=== PATIENT | female | born 1930 | race Caucasian/White ===

== ENCOUNTER 2017-01-24 11:14 | Day surgery (SDC) | payer MEDICARE ==
[2017-01-23 14:25] VITALS: BMI 22.1
[2017-01-24] MEDS ORDERED: Lidocaine 1% PF 5 ML VIAL ONE (12:54)
[2017-01-24] MEDS ORDERED: Propofol 200 MG/20 ML VIAL ONE (12:54)
--- NOTE | 2017-01-24 13:31 | OP ---
DATE OF PROCEDURE: 01/24/2017 SURGEON: Will Zurita M.D. PREOPERATIVE DIAGNOSIS: Achalasia. PROCEDURE: After informed consent was obtained, the patient was placed in the left lateral decubitu s position. Anesthesia was administered per the Anesthesia Department. Forward viewing endoscope w as inserted into the esophagus under direct visualization with ease and passed to the second portion of the duodenum with ease. Second portion of the duodenum and duodenal bulb were normal. The pylo jesus, antrum, body, fundus, and cardia were normal. Retroflexion in the stomach showed a small hiata l hernia. The botulism toxin was injected in 4 quadrant fashion, 1 mL per quadrant in the usual man ner. No immediate complications were noted. The esophagus was somewhat dilated. ASSESSMENT: 1. Achalasia. 2. Small hiatal hernia. 3. Otherwise, normal esophagogastroduodenoscopy. RECOMMENDATIONS: Follow up in office in 1 month.
--- OUTSIDE RECORDS SUMMARY | 2017-01-24 15:02 | XMS | Clinical Summary ---
:1930 Author Organization [facility] Address [address] [place] [address] Phone Care Team Providers Name Role Phone [place] [facility] Primary Care Provider tel Allergies No Known Allergies Current Medications Prescription Sig. Disp. Refills Start Date End Date Status carvedilol (COREG) 6.25 MG Take 6.25 mg by Active tablet mouth 2 (two) times a day with meals. furosemide (LASIX) 20 mg Take 20 mg by Active tablet mouth daily. potassium chloride Take 20 mEq by Active (KLOR-CON) 20 mEq packet mouth daily. LORAZepam (ATIVAN) 1 MG Take 1 mg by Active tablet mouth every 6 (six) hours as needed for anxiety. FENOFIBRATE Take 80 mg by Active NANOCRYSTALLIZED (TRICOR mouth daily. ORAL) pravastatin (PRAVACHOL) 20 Take 20 mg by Active MG tablet mouth daily. losartan (COZAAR) 50 MG Take 50 mg by Active tablet mouth daily. FISH Take by mouth 2 Active OIL/BORAGE/FLAX/OM3,6,9#1 (two) times a (OMEGA 3-6-9 COMPLEX ORAL) day. MV,CA,MIN/IRON/FA/GUARANA/C Take by mouth. Active AFF (ONE-A-DAY WOMEN'S ACTIVE ORAL) calcium carbonate (calcium Chew. Active carbonate) 400 mg calcium (1,000 mg) tablet,chewable levothyroxine (SYNTHROID, Take 75 mcg by Active LEVOXYL) 75 mcg tablet mouth every morning. digOXIN (LANOXIN) 125 mcg Take 125 mcg by Active tablet mouth daily. ascorbic acid, vitamin C, Take 1,000 mg by Active (vitamin C) 1000 MG tablet mouth daily. ascorbic acid, vitamin C, Take 500 mg by Active (VITAMIN C) 500 MG tablet mouth daily. biotin 10,000 mcg capsule Take by mouth. Active coenzyme Q10 (COQ-10) 100 Take 200 mg by Active mg capsule mouth 2 (two) times a day. metOLazone (ZAROXOLYN) 5 MG Take 5 mg by Active tablet mouth daily. 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 Family History Medical History Relation Name Comments Heart disease Father Heart disease Mother Relation Name Status Comments Father Mother Social History Tobacco Use Types Packs/Day Years Used Date Former Smoker Quit: 03/31/1984 Tobacco Cessation:Counseling Given: No Alcohol Use Drinks/Week oz/Week Comments No Sex Assigned at Date Recorded Not on file Last Filed Vital Signs Vital Sign Reading Time Taken Blood Pressure 108/55 08/01/2016 11:45 AM CDT Pulse 57 08/01/2016 11:45 AM CDT Temperature 35.6 C (96 F) 08/01/2016 11:45 AM CDT Respiratory Rate 18 08/01/2016 11:45 AM CDT Oxygen Saturation 98% 08/01/2016 11:45 AM CDT Inhaled Oxygen Concentration - - Weight 59.8 kg (131 lb 12.8 oz) 08/01/2016 11:45 AM CDT Height 165.1 cm (5' 5") 08/01/2016 11:45 AM CDT Body Mass Index 21.93 08/01/2016 11:45 AM CDT Plan of Treatment Health Maintenance Due Date Last Done Comments ZOSTER VACCINE 1989 PNEUMOCOCCAL POLYSACCHARIDE VACCINE AGE 65 AND OVER 1994 PNEUMOCOCCAL-13 1994 INFLUENZA VACCINE 10/29/2016 Results Not on filefrom Last 3 Months Insurance Payer Benefit Plan / Group Subscriber ID Type Phone Address MEDICARE MEDICARE PART A AND B [id number] Medicare [place], [place] AAR AARP SUPPLEMENT [id number] Commercial [phone] [place] [address], [place] [id number]
== END 2017-01-24 15:05 | disposition home or self-care (01) ==
LOC: SDC 11:14
PROVIDERS: ATTEND Internal Medicine Gastroenterology
PROC: 3E0G8GC Introduction of Other Therapeutic Substance into Upper GI, Via Natural or Artificial Opening Endoscopic (ICD-10-PCS; principal; 2017-01-24)
DX: K22.0 Achalasia of cardia (principal); K44.9 Diaphragmatic hernia without obstruction or gangrene; Z91.048 Other nonmedicinal substance allergy status; Z95.810 Presence of automatic (implantable) cardiac defibrillator; Z98.890 Other specified postprocedural states
CPT/HCPCS: 43236; J0585; J2001; J2704

== ENCOUNTER 2017-04-16 10:58 | Inpatient (IN) | payer MEDICARE ==
[2017-04-16] MEDS ORDERED: Ondansetron HCl/PF 4 MG/2 ML Vial ONE (11:27)
[2017-04-16 12:03] LABS: #Eosinphils 0.1 thou/uL (0.0-0.7); #Lymphocytes 0.8 thou/uL (1.20-3.40); #Monocytes 0.6 thou/uL (0.11-0.59); #Neutrophils 4.3 thou/uL (1.40-6.50); %Basophils 0.3 % (0.0-1.0); %Eosinophils 2.2 % (0.0-10.0); %Lymphocytes 13.4 % (21.0-51.0); %Monocytes 9.9 % (0.0-10.0); %Neutrophils 74.2 % (42.0-75.0); Hemoglobin 17.4 g/dL (12.0-16.0); Mean Corpuscular HGB CONC 31.2 g/dL (32.0-36.0); Mean Corpuscular Hemoglobin 32.8 pg (27.0-31.0); Mean Platelet Volume 7.8 fL (7.4-10.4); Platelet Count 184 thou/uL (130-400); RBC Distribution Width 15.9 % (11.5-14.5); Red Blood Cell (RBC) Count 5.32 mill/uL (4.20-5.40); White Blood Cell (WBC) Count 5.8 thou/uL (4.8-10.8)
[2017-04-16 12:17] LABS: ALT (SGPT) 24 U/L (8-55); AST (SGOT) 39 U/L (5-34); Albumin 3.7 g/dL (3.4-4.8); Alkaline Phosphatase 49 U/L (40-150); Anion Gap 17 mmol/L (10-20); BUN (Urea Nitrogen) 66 mg/dL (9.8-20.1); Bilirubin, Total 1.8 mg/dL (0.2-1.2); Calc. Creatinine Clearance 0 mL/min (70-130); Calcium 10.8 mg/dL (7.8-10.44); Carbon Dioxide 23 mmol/L (23-31); Chloride 96 mmol/L (98-107); Estimated GFR-MDRD 22; Glucose 115 mg/dL (83-110); Lipase 27 U/L (8-78); Potassium 5.9 mmol/L (3.5-5.1); Protein, Total 6.7 g/dL (6.0-8.3); Sodium 130 mmol/L (136-145)
[2017-04-16 12:21] LABS: CKMB 6.6 ng/mL (0-6.6)
--- NOTE | 2017-04-16 12:45 | RAD ---
2 VIEWS CHEST: Date: 04/16/17 COMPARISON: 02/01/17. HISTORY: Trauma with chest pain. FINDINGS: Two views of the chest show an enlarged but stable cardiomediastinal silhouette. The pacemaker is unc hanged in position. There is no evidence of consolidation or pleural effusion. There is obscurity of the left hemidiaphragm, which is likely secondary to the patient's enlarged heart. Degenerative perez es are seen in the spine. IMPRESSION: Cardiomegaly without evidence of acute cardiopulmonary disease. POS: [facility]
--- NOTE | 2017-04-16 13:12 | CT ---
CT ABDOMEN AND PELVIS WITHOUT CONTRAST: HISTORY: Abdominal pain after a fall. The patient is unable to have contrast given (poor renal function). COMPARISON: 01/30/2017 TECHNIQUE: Multiple contiguous axial images were obtained in a CT of the abdomen and pelvis without contrast. C oronal reformats were performed. FINDINGS: There is a small gallstone in the dependent aspect of the gallbladder. There appears to be stranding change surrounding the gallbladder, but this may be artifactual, as there is diffuse soft tissue crystal sarca. There are calcifications in the spleen from prior granulomatous disease. The liver, kidneys, adrenal glands, and pancreas are grossly unremarkable, but evaluation is limited without IV contrast . A small amount of free fluid is seen in the pelvis. The reproductive organs are small and atrophic. Scattered diverticula are seen in the colon. The small bowel is unremarkable. No abdominal or pelvic lymphadenopathy is seen. Atherosclerotic calcifications are seen in the aorta and its branch vessels. Degenerative changes are seen in the spine. There are small bilateral pleural effusions. A calcifie d granuloma is seen in the left lung base. IMPRESSION: 1. No evidence of acute intraabdominal/pelvic abnormality. Please note that this exam is limited se condary to a noncontrast exam being performed. 2. Cholelithiasis with possible stranding surrounding the gallbladder. Correlate with right upper q uadrant tenderness and liver function tests. 3. Diverticulosis. POS: [facility] L
[2017-04-16 13:45] LABS: Digoxin 0.82 ng/mL (0.8-2.0)
--- NOTE | 2017-04-16 14:10 | ULT ---
RIGHT UPPER QUADRANT ULTRASOUND: Comparison: CT abdomen/pelvis 04-16-17. History: Abnormality seen in the gallbladder on prior CT. Patient has chest and abdominal pain. Technique: Multiplanar grayscale and color doppler images were obtained in a right upper quadrant abd ominal ultrasound. FINDINGS: The liver is normal in echogenicity without focal lesions or intrahepatic ductal dilatation. The comm on bile duct is normal measuring 5 mm. The gallbladder is distended. There is significant gallbladder wall thickening and a small amount of pericholecystic fluid. There is one single echogenic focus in the gallbladder without shadowing which could represent a nonshadowing calcification. The visualized portions of the pancreas are unremarkab le. The right kidney is normal in echogenicity without hydronephrosis or calculus and measures 9.9 cm in length. IMPRESSION: The gallbladder demonstrates a thickened wall and pericholecystic fluid. This could be secondary to a cute cholecystitis. Correlate with LFTs and white count. POS: [facility]
[2017-04-16 15:38] LABS: CKMB 4.3 ng/mL (0-6.6); Troponin I 0.099 ng/mL (< 0.028)
[2017-04-16 15:54] LABS: ALT (SGPT) 23 U/L (8-55); AST (SGOT) 44 U/L (5-34); Albumin 2.9 g/dL (3.4-4.8); Alkaline Phosphatase 41 U/L (40-150); Anion Gap 22 mmol/L (10-20); BUN (Urea Nitrogen) 63 mg/dL (9.8-20.1); Bilirubin, Total 1.5 mg/dL (0.2-1.2); Calc. Creatinine Clearance 0 mL/min (70-130); Calcium 10.1 mg/dL (7.8-10.44); Carbon Dioxide 15 mmol/L (23-31); Chloride 100 mmol/L (98-107); Estimated GFR-MDRD 23; Globulin 3.3 g/dL (2.4-3.5); Glucose 87 mg/dL (83-110); Potassium 6.5 mmol/L (3.5-5.1); Protein, Total 6.2 g/dL (6.0-8.3); Sodium 130 mmol/L (136-145)
[2017-04-16 16:31] LABS: Anion Gap 18 mmol/L (10-20); BUN (Urea Nitrogen) 63 mg/dL (9.8-20.1); Calc. Creatinine Clearance 0 mL/min (70-130); Calcium 10.2 mg/dL (7.8-10.44); Carbon Dioxide 23 mmol/L (23-31); Chloride 98 mmol/L (98-107); Estimated GFR-MDRD 25; Glucose 85 mg/dL (83-110); Potassium 5.6 mmol/L (3.5-5.1); Sodium 133 mmol/L (136-145)
[2017-04-16] MEDS ORDERED: Piperacillin/Tazobactam 3.375 GM in Sodium Chloride 0.9% 100 ML IVPB SCH (16:45)
[2017-04-16] MEDS ORDERED: Acetaminophen 325 MG TAB PO PRN (19:04)
[2017-04-16] MEDS ORDERED: Sodium Chloride 0.9% 1,000 ML IV SCH (19:04)
[2017-04-16] MEDS ORDERED: Ondansetron HCl/PF 4 MG/2 ML Vial IVP PRN (19:04)
[2017-04-16] MEDS ORDERED: hydrALAZINE 20 MG/ML VIAL SLOW IVP PRN (19:04)
--- NOTE | 2017-04-16 19:14 | CON ---
DATE OF CONSULTATION: 04/16/2017 REQUESTING PHYSICIAN: Dr. Lamb. ATTENDING SURGEON: Dr. Gao. HISTORY OF PRESENT ILLNESS: The patient is an 87-year-old female who reportedly fell approximately 2 -3 days ago while in her bathroom, she slipped and struck the left side of her chest against the wall between her toilet and bidet. The patient's pain continued, left-sided chest pain and finally broug ht her to the emergency department where she underwent evaluation and examination and during that exa mination, she was noted to have on CT pericholecystic fluid with the appearance of possible acute cho lecystitis. This fluid was confirmed by right upper quadrant ultrasound. According to the patient's history, she denies any right upper quadrant pain. She does have occasional nausea and vomiting navi t she can relate to any specific foods, most notably fatty foods but we were asked to evaluate the pa tient due to this incidental finding. ALLERGIES: No known drug allergies. CURRENT MEDICATIONS: Carvedilol, CoQ10, digoxin, Lasix, levothyroxine, potassium chloride, pravastat in and TriCor. PAST MEDICAL HISTORY: Coronary artery disease with significant left-sided heart failure, the patient was noted to have an EF of 25%;hypertension; hypothyroidism; and COPD. PAST SURGICAL HISTORY: Implanted defibrillator, gastric bypass surgery. SOCIAL HISTORY: Patient is and lives with her . She denies drug, alcohol or tobacco use. REVIEW OF SYSTEMS: Ten point review of systems was negative, unless otherwise stated. PHYSICAL EXAMINATION: VITAL SIGNS: Blood pressure 102/49, heart rate 61, respirations 17, oxygen saturation 96% on 3 liter s via nasal cannula. HEENT: Unremarkable. GENERAL: The patient is alert and oriented x3. Lower Brule coma scale is 15. NECK: Trachea is midline. No JVD. LUNGS: Clear to auscultation with moderate inspiratory and expiratory effort, does have scant bilate ral wheezing. HEART: Regular rate and rhythm. ABDOMEN: Soft, flat, nontender with active bowel sounds. Pelvis is stable. The patient has no maryjo toneal signs. Negative Mims's sign. The patient did have some left-sided chest wall pain. EXTREMITIES: Show neurovascularly intact with 1+ edema in bilateral lower extremities. Capillary re fill is less than 3 seconds. Pulses are 2+. BACK: Nontender and atraumatic. LABORATORY DATA: White blood cell count 5.8, hemoglobin 17.4, hematocrit 55.5, platelets 184. Sodiu m 133, potassium 5.6, chloride of 98, CO2 of 23, BUN 63, creatinine 1.87, glucose 85, total bilirubin 1.5, AST 44, ALT 23, alkaline phosphatase 41. RADIOGRAPHIC FINDINGS: 1. AP chest shows cardiomegaly without evidence of acute pulmonary disease. CT of the abdomen and p linda shows no evidence of acute abdominal/pelvic abnormality which is limited by being a noncontrast ed study. 2. Cholelithiasis with possible stranding surrounding the gallbladder and diverticulosis. Right upp er quadrant ultrasound shows the gallbladder demonstrates a thickened wall and pericholecystic fluid. This could be secondary to acute cholecystitis. ASSESSMENT AND PLAN: 1. Status post fall approximately 3 days ago. 2. Left-sided chest wall contusion. 3. Hyponatremia. 4. Hyperkalemia. 5. Acute on chronic renal insufficiency. 6. Incidental finding of possible chronic cholecystitis. Plan will be to optimize medical management to correct electrolyte abnormalities. We will re-examine the patient in the morning. Due the patient's significant comorbidities to include EF of only 25%, maximizing conservative management/nonoperative management will be primary. If surgical intervention is thought to be needed, patient may benefit from a HIDA scan at that time. The evaluation, examina tion, radiographic and laboratory findings were done with Dr. Gao in the emergency department.
[2017-04-16] MEDS: Famotidine 20 MG TAB PO SCH (21:00)
[2017-04-16] MEDS ORDERED: (Biotin [Biotin] 10,000 MCG) PO SCH (21:00)
[2017-04-16] MEDS: Stress 600 With Zinc 1 TAB PO SCH (21:00)
[2017-04-16] MEDS: Fish Oil 1,000 MG CAP PO SCH (21:00)
[2017-04-16] MEDS: Ubidecarenone 50 MG CAP PO SCH (21:00)
[2017-04-16] MEDS: Fenofibrate 48 MG TAB PO SCH (21:01)
[2017-04-16] MEDS: Heparin 5,000 UNITS/ML VIAL SC SCH (21:01)
[2017-04-16] MEDS: Pravastatin Sodium 20 MG TAB PO SCH (21:01)
[2017-04-16] MEDS: Ondansetron ODT 4 MG TAB PO PRN (21:20)
--- NOTE | 2017-04-16 22:03 | HP ---
PRIMARY CARE PHYSICIAN: Dr. Villarreal. ONCOLOGIST: Dr. Sanders. CHIEF COMPLAINT: Fell in the bathroom and having soreness in her chest. HISTORY OF PRESENT ILLNESS: Ms. 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 She says that s he fell in the bathroom and hit the side of her chest and then shortly after that she began having so reness in her chest. She said it got progressively worse and then she called to make an appointment to see Dr. Villarreal, but the pain got worse and she came to the emergency room for evaluation. She says also she has been having an upset stomach and nausea, but she says she has this almost all the time. She says the nausea may be a little bit worse than usual. She says due to her achalasia, she can k eep liquids down and this has been consistent. She says there is no change in this symptoms. She sa ys that she has not had any solid food, which she is usually able to eat, but she attributes this to the fall and having more pain. Otherwise, there has been no fevers, no chills, no night sweats, no w eight loss, etc. REVIEW OF SYSTEMS: Constitutional: Again no fevers, chills, no night sweats, no weight loss. HEENT : No headaches, no dizziness, no visual changes, no sore throat, rhinorrhea, neck pain, no adenopath y. Pulmonary: No hemoptysis, no cough, no wheezing. Cardiovascular: She denies any chest pain, no shortness of breath, no PND, no orthopnea. Gastrointestinal: As stated in the history of present i llness. Genitourinary: No urinary frequency, hematuria, no hesitancy. Neurologic: No focal weakne ss, numbness, no seizures. Psychiatric: No symptoms of anxiety or depression. Skin And Integument: No skin changes. No rash. 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 PAST SURGICAL HISTORY: She has initially had a pacemaker then a defibrillator placed and then a gene rator change and she has had multiple Botox injections. ALLERGIES: LATEX. SOCIAL HISTORY: She is a nonsmoker, nondrinker. Denies any drug use. She is . FAMILY HISTORY: No history of any inheritable diseases. CURRENT MEDICATIONS: Include biotin, carvedilol 3.125 mg twice daily, vitamin D3 of 2000 units daily , digoxin 0.125 mg daily, TriCor 80 mg daily, Lasix 80 mg daily, lorazepam 1 mg at bedtime, Synthroid 75 mcg daily, losartan 50 mg one-half tablet daily, multivitamin once a day, and potassium chloride 10 mEq a day. PHYSICAL EXAMINATION: GENERAL: She is alert and oriented. She appears to be in no acute distress. The patient is a bit t hin for her height, but well-developed. VITAL SIGNS: Blood pressure is 113/61, heart rate 64, respiratory rate of 18. She is afebrile. HEENT: Pupils are equal, round, and reactive. Extraocular muscles are intact. Her sclerae anicteri c. Throat no erythema, no exudates. NECK: No adenopathy, no bruits. LUNGS: Clear to auscultation. No wheezing, no rales. CARDIOVASCULAR: She has a normal S1, S2. I did not appreciate any S3 or S4. She does have a grade 2/6 systolic murmur. ABDOMEN: Soft. She has got some diffuse tenderness primarily in the epigastric to left-mid quadrant . Bowel sounds are present. There is no rebound, no guarding. EXTREMITIES: She has got some nonpitting brawny like edema throughout. NEUROLOGICAL: Her exam is nonfocal. LABORATORY RESULTS: Sodium is 133, potassium 5.6, chloride is 98, CO2 is 23, BUN is 63, creatinine 1 .8, glucose is 85. White blood cell count is 5.8, hemoglobin 17, hematocrit is 55.8, platelet count is 184. Troponin was 0.12. CT scan and abdominal ultrasound both demonstrated stones in the gallbladder, cholelithiasis. There was also some stranding as well about the gallbladder, the pericolic region. Chest x-ray was essenti ally negative without any acute cardiopulmonary disease. ASSESSMENT AND PLAN: This is an 87-year-old female who suffered a fall at home and then began having pain in her chest afterwards. Apparently that pain was very severe and she sought attention in the ER. Now that she has been given some IV fluids in the emergency room as well as antibiotics and anti emetics, she is feeling much better and her daughter actually says she appears to be at her baseline. She has already been seen by Dr. Gao with General Surgery to evaluate for acute cholecystitis and it is of his opinion that this is unlikely and as such, surgical intervention is not warranted. The refore, with regard to the chest pain, this is likely due to a chest contusion. Chest x-ray did not demonstrate any obvious risk for fractures, this can be treated symptomatically. 1. Abdominal pain and nausea. This is likely the result of her chronic achalasia. Her symptoms are more related to liquids than solids and this is consistent with what she has experienced for many ye ars now. The decreased intake and solids was likely secondary to pain. 2. The patient appears to have a mild acute on chronic kidney injury likely from decreased oral inta ke. The hyperkalemia is likely the result of the acute renal failure as well. She has already been given a liter of fluids in the ER, but given her history of severe systolic heart failure. We will c autiously continue to hydrate her overnight, but at a very low rate. 3. Chronic systolic heart failure. This appears to be compensated and we will restart her usual merlyn e medications regarding this. Hopefully, if she is stable in the a.m., then likely she can be discha rged home.
--- NOTE | 2017-04-17 00:28 | PRG ---
DATE OF SERVICE: 04/16/2017 SUBJECTIVE: This is an 87-year-old female who was seen earlier today as a surgical consultation for question of acute cholecystitis. Upon my evaluation, the patient denies any right upper quadrant ankit n. She did, however, recently have some vomiting after receiving her evening medications, but patien t states nausea has since resolved. Otherwise, she vocalized no complaints. OBJECTIVE: VITAL SIGNS: Reviewed and stable. Patient is afebrile. GENERAL: Sitting on edge of bed, eating applesauce. RESPIRATORY: Breathing is nonlabored. ABDOMEN: Soft, nontender, nondistended. ASSESSMENT AND PLAN: As documented in consultation note. Follow patient's physical exam in the a.m. Continue care as ordered. Medical management per primary.
[2017-04-17 04:05] LABS: Bilirubin Small (Negative); Blood, Urine Negative (Negative); Clarity CLOUDY (Clear); Glucose, Urine (Dipstick) Negative (Negative); Leukocyte Moderate (Negative); Nitrite Negative (Negative); Protein, Urine (Dipstick) 100 mg/dL (Neg-Trace); Specific Gravity, Urine 1.023 (1.002-1.036); pH, Urine 5.5 (5.0-9.0)
[2017-04-17 04:07] LABS: Bacteria/HPF None Seen HPF (None Seen); Hyaline Casts/LPF 7-10 HYALINE CAST LPF (0-3 Hyaline); Pathc Cast-AUWi Flag 1.49 (0-2.49); Squamous Epithelial 0-3 HPF (0-3)
[2017-04-17 04:11] LABS: Yeast-AUWi Flag 107.5 (0-25.0)
[2017-04-17 04:17] LABS: Amphetamine Not Detected (NotDetected); Barbiturates Screen Not Detected (NotDetected); Benzodiazepine Screen Detected (NotDetected); Cocaine Metabolite Screen Not Detected (NotDetected); Medtox Control Line Valid? VALID (VALID); Medtox Reader # READER 4; Methadone Not Detected (NotDetected); Methamphetamine Not Detected (NotDetected); Opiate Screen Not Detected (NotDetected); Oxycodone Screen Not Detected (NotDetected); Phencyclidine (PCP) Not Detected (NotDetected); THC/Cannabinoid Screen Not Detected (NotDetected); Tricyclic Screen Not Detected (NotDetected)
[2017-04-17 04:29] LABS: Crystals/HPF 1+ AMORPH URATES HPF (Negative); RBC/HPF 0-3 HPF (0-3); Renal Epithelial None Seen HPF (0-3); Yeast-All Forms None Seen HPF (None Seen)
[2017-04-17] MEDS: Levothyroxine Sodium 75 MCG TAB PO SCH (05:06)
[2017-04-17] MEDS: cefTRIAXone\\ROCEPHIN 1 GM, Syringe 0.4 ML in Sterile Water 9.6 ML SLOW IVP SCH (05:29)
[2017-04-17 05:37] LABS: Anion Gap 15 mmol/L (10-20); BUN (Urea Nitrogen) 69 mg/dL (9.8-20.1); Calc. Creatinine Clearance 16 mL/min (70-130); Calcium 9.7 mg/dL (7.8-10.44); Carbon Dioxide 27 mmol/L (23-31); Chloride 97 mmol/L (98-107); Estimated GFR-MDRD 20; Glucose 81 mg/dL (83-110); Potassium 6.4 mmol/L (3.5-5.1); Sodium 133 mmol/L (136-145)
[2017-04-17 05:38] LABS: ALT (SGPT) 27 U/L (8-55); AST (SGOT) 49 U/L (5-34); Albumin 3.6 g/dL (3.4-4.8); Alkaline Phosphatase 76 U/L (40-150); Bilirubin, Direct 1.4 mg/dL (0.1-0.3); Bilirubin, Total 1.8 mg/dL (0.2-1.2); Protein, Total 6.2 g/dL (6.0-8.3)
[2017-04-17 06:33] LABS: Hemoglobin 15.4 g/dL (12.0-16.0); Mean Corpuscular HGB CONC 31.1 g/dL (32.0-36.0); Mean Corpuscular Hemoglobin 33.1 pg (27.0-31.0); Mean Platelet Volume 8.3 fL (7.4-10.4); Platelet Count 136 thou/uL (130-400); RBC Distribution Width 15.8 % (11.5-14.5); Red Blood Cell (RBC) Count 4.65 mill/uL (4.20-5.40); White Blood Cell (WBC) Count 4.6 thou/uL (4.8-10.8)
[2017-04-17 08:02] LABS: Band 7 % (5-11); Eosinophils 1 % (0-10); Lymphocytes 12 % (21-51); MDiff Complete? YES; Monocytes 2 % (0-10); Neutrophil 71 % (42-75); RBC Morphology Normal; Reactive Lymphocytes 7 % (0-10)
[2017-04-17] MEDS ORDERED: Potassium Chloride 20 MEQ TAB PO SCH (09:00)
[2017-04-17] MEDS ORDERED: Multivit, Therapeutic 1 TAB PO SCH (09:00)
[2017-04-17] MEDS ORDERED: Digoxin 0.125 MG TAB PO SCH (09:00)
[2017-04-17] MEDS ORDERED: Losartan 25 MG TAB PO SCH (09:00)
[2017-04-17] MEDS: Carvedilol 3.125 MG TAB PO SCH ×2 (09:38→17:18)
[2017-04-17] MEDS: Heparin 5,000 UNITS/ML VIAL SC SCH ×2 (09:39→22:31)
[2017-04-17] MEDS: traMADol HCl 50 MG TAB PO PRN (13:04)
[2017-04-17] MEDS ORDERED: Sodium Chloride 0.9% 1,000 ML IV SCH (15:08)
--- NOTE | 2017-04-17 15:12 | PDOC.PN ---
- Subjective Encounter Start Date: 04/17/17 Encounter Start Time: 15:10 Ms. Amaro was able to eat a little breakfastthis morning. Some eggs, however later this afternoon she began to feel sick again. She ate a fruit cup around 1pm and then was able to take the Kayexalate, and an Ultram, and then about an hour later became sick again. She also notes some abdominal pain in the lower abdomen as well. - Objective Resuscitation Status: Resuscitation Status FULL:Full Resuscitation MAR Reviewed: Yes Vital Signs & Weight: Vital Signs (12 hours) Temp Pulse Resp BP Pulse Ox 04/17/17 12:59 63 18 97/53 L 100 04/17/17 09:38 65 04/17/17 07:30 98.8 F 65 18 113/61 100 04/17/17 04:11 99.1 F 63 20 105/55 L 99 Weight Weight 134 lb 1.6 oz I&O: 04/16/17 04/17/17 04/18/17 06:59 06:59 06:59 Intake Total 381 600 Output Total 350 Balance 31 600 Result Diagrams: 04/17/17 04:12 04/17/17 04:12 Phys Exam - Physical Examination HEENT: PERRLA Respiratory: no wheezing, no rales, no rhonchi, clear to auscultation bilateral Cardiovascular: RRR, no significant murmur Gastrointestinal: soft + abdominal discomfort in the lower abdomen, soft, positive BS Musculoskeletal: no edema Dx/Plan (1) Hyperkalemia Code(s): E87.5 - HYPERKALEMIA Status: Acute (2) Acute renal failure Status: Acute (3) Chronic systolic heart failure Code(s): I50.22 - CHRONIC SYSTOLIC (CONGESTIVE) HEART FAILURE Status: Acute (4) Achalasia Code(s): K22.0 - ACHALASIA OF CARDIA Status: Chronic (5) Nausea & vomiting Code(s): R11.2 - NAUSEA WITH VOMITING, UNSPECIFIED Status: Resolved - Plan * Nausea and vomiting- it is very difficult to determine if her symptoms are due to Achalasia, or to Gallbladder disease. It is also noted that her LFT's and Bilirubin is a bit higher today. Will therefore obtain a HIDA scan. If positive, she could be considered for Cholecystostomy tube drainage of the Gallbladder, if she is too high risk for Cholecystectomy * Hyperkalemia- this is likely from acute renal failure- as well as potassium supplementation and ARB's. Will discontinue Losartan, and Potassium replacement , She has been given Kayexalate, and will repeat potassium level this afternoon * Achalasia- continue diet as recommended by Speech Therapy * Chronic Systolic heart failure- recent Echo had her EF at 10-15%- therefore hydration will need to be managed carefully.
[2017-04-17] MEDS ORDERED: Lorazepam 2 MG/ML VIAL SLOW IVP PRN (17:00)
[2017-04-17 17:35] LABS: Potassium 6.6 mmol/L (3.5-5.1)
[2017-04-17] MEDS ORDERED: Calcium Chloride 13.6 MEQ in Sodium Chloride 0.9% 100 ML IVPB SCH (18:00)
--- NOTE | 2017-04-17 18:58 | CON ---
DATE OF CONSULTATION: 04/17/2017 NEPHROLOGY CONSULTATION REASON FOR CONSULTATION: Hyperkalemia. HISTORY OF PRESENT ILLNESS: This is a very pleasant 87-year-old female who presented with a fall aft er having episodes of chest pain. Her potassium was more than 6 yesterday and increased to 6.6. She has congestive heart failure, so we were consulted. The patient at this time denies headache, numbn ess, tingling, or chest pain. PAST MEDICAL HISTORY: Significant for hypothyroidism, achalasia, congestive heart failure, EF 10%, h yperlipidemia, bradycardia, pacemaker defibrillator, bone marrow malignancy, multiple Botox injection s. REVIEW OF SYSTEMS: Fifteen point review of systems was performed and negative except positives noted . GENERAL: Weakness- HEAD: Headache- NECK: No swelling or lumps. NOSE: No epistaxis or discharge. EYES: No diplopia or pain. RESPIRATORY: Dyspnea- CARDIOVASCULAR: Chest pain- GASTROINTESTINAL: Nausea- /PROFESSOR OF MEDICINE: Hematuria- MUSCULOSKELETAL: No joint pain. NEUROPSYCHIATIC SYSTEMS: No suicidal ideation. No ideation. SKIN: Denies any rash or ulcer. CONSTITUTIONAL: No fever or chills. SOCIAL HISTORY: No alcohol or drug use. FAMILY HISTORY: Negative for ESRD. ALLERGIES: Reviewed. HOME MEDICATIONS: List reviewed. PHYSICAL EXAMINATION: GENERAL: Patient is awake, alert, in no acute distress. VITAL SIGNS: Afebrile, pulse 75, breathing at 16, blood pressure was 96/55. OBJECTIVE: See above. GENERAL APPEARANCE AND MENTAL STATUS: Fair. HEAD/NECK: Normocephalic. Atraumatic. EYES: EOMI. No deformity. EARS: Clear. No ulcers. NOSE: Intact. No lesions. MOUTH: Clear. No discharge. THROAT: Clear. No exudate. LUNGS: Clear. No crackles. CARDIAC: S1, S2. No rub. ABDOMEN: Benign. BS+. GENITALIA/RECTUM: Negron absent. BACK/EXTREMITIES: Edema 0+ Ulcer- NEUROLOGICAL: Alert and motor intact. SKIN: Rash- Bruise- LYMPHATICS: Edema- Ulcer- LABORATORY DATA: Potassium 6.6. Hemoglobin is 15.4. ASSESSMENT AND RECOMMENDATIONS: 1. Acute kidney injury with chronic kidney disease, most likely due to congestive heart failure. Ag ree with stopping ARB. 2. Hyperkalemia. Plan urgent dialysis. Consent was obtained. Risks versus benefits were discussed . Metabolic acidosis resolved. 3. Medication based on glomerular filtration rate. I would recommend changing the digoxin to every 2 days.
[2017-04-17 19:49] LABS: Potassium 6.2 mmol/L (3.5-5.1)
[2017-04-17 20:58] LABS: Hep B Core Total Ab Non-Reactive (NonReactive)
--- NOTE | 2017-04-17 21:00 | PRG ---
DATE OF SERVICE: 04/17/2017 The patient was seen in consultation yesterday for an incidental finding of what was most likely a ch ronic cholecystitis. The patient currently has no evidence of acute cholecystitis that will necessit ate surgical intervention. The patient overnight again tolerated her diet. She did have some nausea , but all of her pain was left-sided, consistent with where her fall was. The patient is still requi ring medical management for her electrolyte imbalances and renal insufficiency. The possibility of s urgical intervention for her gallbladder was discussed with the patient and with Dr. Rossi. At this time, we will await any acute changes, otherwise we will have the patient follow up as an outpatient . This case was discussed by Dr. Gao at rounds.
[2017-04-17 21:04] LABS: Hep B Surf Ag Non-Reactive S/CO (NonReactive)
[2017-04-17 21:05] LABS: HBSAg Index 0.22 S/CO (0-0.99); Hep C IgG Ab Non-Reactive (NonReactive)
[2017-04-17 21:06] LABS: Hep B Surf AB Non-Reactive (NonReactive); Hep C Index 0.43 S/CO (0-0.79)
--- NOTE | 2017-04-17 22:09 | HP ---
HISTORY OF PRESENT ILLNESS: Ms. Amaro is an 87-year-old female who lives at home with her more navi n 89-year-old . Daughter states that they need help at home. The patient was admitted on , hospitalist. She fell on the bathroom, was having soreness in her chest. She underwent a C AT scan of the abdomen and pelvis on 04/16/2017 without contrast, noted some free fluid in the pelvis , anasarca, gallstones, some stranding around the gallbladder. She subsequently underwent ultrasound noting some pericholecystic fluid. There was 1 echogenic focus in the gallbladder without shadowing , which could represent a non-shadowing calcification on ultrasound. The patient's bilirubin is 1.5, AST 44. General Surgery consultation was made. Trauma team saw her and felt she was a poor carlos a te. The patient has cardiomyopathy, 10%-15% cardiac ejection fraction, has a defibrillator in left s ubclavian vein. She is followed by Dr. Jones. On admission, the patient had a potassium of 6.5, with medical treatment it fell to 5.6, it was 6.4 this morning at 4 o'clock. Repeat potassium was 6 .6. Urine output has been low. Dr. Gutierres was consulted and I have been asked to place an urgent hemo dialysis catheter. The patient has been receiving losartan, digoxin, and the digoxin has been re-adj usted for her renal failure. Plan is to place a temporary femoral vein hemodialysis catheter in right groin tonight and planned cu ffed tunnel dialysis catheter tomorrow as well as central line. She has a left antecubital IV, which I removed. ALLERGIES: ADHESIVE TAPE. TOBACCO: None. ALCOHOL: None. MEDICATIONS AT HOME: She takes potassium chloride 40 mEq a day, multivitamins daily, Cozaar 25 mg a day, levothyroxine 75 mcg a day, Lasix 80 daily, fish oil daily, TriCor 80 mg at bedtime, digoxin 0.1 25 mg a day, cholecalciferol daily, carvedilol 3.125 mg b.i.d., pravastatin 20 mg at bedtime, CoQ10 d aily, vitamin B complex. PAST SURGICAL HISTORY: Defibrillator, Botox. PAST MEDICAL HISTORY: Cardiomyopathy, defibrillator status, pacemaker status, achalasia, hypothyroid ism, COPD, history of some sort of leukemia. PHYSICAL EXAMINATION: VITAL SIGNS: Height 5 feet 6 inches, weight 134 pounds, BMI 21, temperature 97 degrees, blood pressu re 96/55, heart rate 60. LUNGS: Clear to auscultation. CARDIAC: Regular rate and rhythm without murmur or gallop. ABDOMEN: Soft, nontender. EXTREMITIES: Defibrillator in left chest and IV in left antecubital. Ecchymosis both AC areas. Ecc hymosis throughout both upper extremities. ASSESSMENT AND PLAN: 1. Chronic renal failure with superimposed acute. She has hyperkalemia. We will plan placement of hemodialysis catheter in right groin. Risks and benefits were discussed. We will plan placement of cuffed tunneled dialysis catheter tomorrow and a central line. We will remove her IV of her left arm , avid IVs in her arms. We will obtain ultrasound vein mapping both arms in case more permanent dial ysis access is necessary. 2. Achalasia. Receiving Botox. 3. Congestive heart failure with cardiomyopathy, followed by Dr. Jones.
--- NOTE | 2017-04-17 22:13 | OP ---
PREOPERATIVE DIAGNOSIS: Acute on chronic renal failure, hyperkalemia, need of urgent dialysis. POSTOPERATIVE DIAGNOSIS: Acute on chronic renal failure, hyperkalemia, need of urgent dialysis. PROCEDURE: Right femoral vein hemodialysis catheter, Trialysis. SURGEON: Dr. Jaron Caraballo ANESTHESIA: 1% Xylocaine. DESCRIPTION OF PROCEDURE: At the patient's bedside, her right groin was prepared with chloraprepdr hill in routine fashion. Local anesthetic with 1% Xylocaine infiltrated into skin and subcutaneous t issue about the operative site. Seldinger technique used to place a right femoral vein Trialysis cat heter, removing the J-wire, securing the catheter, and suture of 3-0 nylon. Biopatch Sterile dressin g applied. The patient tolerated the procedure well as each port aspirated blood and flushed with he parinized saline solution 100 units of heparin per mL indicated volume on the port.
[2017-04-17] MEDS: Fenofibrate 48 MG TAB PO SCH (23:05)
[2017-04-17] MEDS: Famotidine 20 MG TAB PO SCH (23:05)
[2017-04-17] MEDS: Pravastatin Sodium 20 MG TAB PO SCH (23:06)
[2017-04-17] MEDS: Stress 600 With Zinc 1 TAB PO SCH (23:06)
[2017-04-17] MEDS: Fish Oil 1,000 MG CAP PO SCH (23:06)
[2017-04-17] MEDS: Ubidecarenone 50 MG CAP PO SCH (23:06)
[2017-04-18 05:45] LABS: ALT (SGPT) 33 U/L (8-55); AST (SGOT) 55 U/L (5-34); Albumin 3.3 g/dL (3.4-4.8); Alkaline Phosphatase 65 U/L (40-150); Anion Gap 17 mmol/L (10-20); BUN (Urea Nitrogen) 56 mg/dL (9.8-20.1); Bilirubin, Direct 1.2 mg/dL (0.1-0.3); Bilirubin, Total 1.9 mg/dL (0.2-1.2); Calc. Creatinine Clearance 16 mL/min (70-130); Calcium 9.9 mg/dL (7.8-10.44); Carbon Dioxide 21 mmol/L (23-31); Chloride 103 mmol/L (98-107); Estimated GFR-MDRD 20; Glucose 67 mg/dL (83-110); Potassium 5.7 mmol/L (3.5-5.1); Protein, Total 6.2 g/dL (6.0-8.3); Sodium 135 mmol/L (136-145)
[2017-04-18] MEDS: Carvedilol 3.125 MG TAB PO SCH ×2 (05:45→18:13)
[2017-04-18] MEDS: Levothyroxine Sodium 75 MCG TAB PO SCH (05:45)
[2017-04-18] MEDS: cefTRIAXone\\ROCEPHIN 1 GM, Syringe 0.4 ML in Sterile Water 9.6 ML SLOW IVP SCH (05:50)
--- NOTE | 2017-04-18 07:52 | PDOC.PN ---
- Subjective Encounter Start Date: 04/18/17 Encounter Start Time: 07:49 Subjective: Seen and examined -had dialysis yesterday - Objective Vital Signs & Weight: Vital Signs (12 hours) Temp Pulse Resp BP Pulse Ox 04/18/17 04:00 97.5 F L 65 18 91/52 L 95 04/18/17 00:05 97 04/18/17 00:00 97.3 F L 63 20 102/53 L 97 04/17/17 21:25 97.9 F 67 20 94/55 L 94 L Weight Admit Weight 134 lb 1.6 oz Weight 134 lb 1.6 oz Result Diagrams: 04/17/17 04:12 04/18/17 04:56 Phys Exam - Physical Examination Constitutional: NAD HEENT: PERRLA, moist MMs, sclera anicteric, TM's clear Neck: no nodes, no JVD Respiratory: no wheezing, no rales, no rhonchi, clear to auscultation bilateral Cardiovascular: RRR, no significant murmur, no rub Gastrointestinal: soft, no distention, positive bowel sounds Musculoskeletal: no edema, pulses present Dx/Plan (1) Fall Code(s): W19.XXXA - UNSPECIFIED FALL, INITIAL ENCOUNTER Status: Acute (2) Acute renal failure Status: Acute (3) Chronic systolic heart failure Code(s): I50.22 - CHRONIC SYSTOLIC (CONGESTIVE) HEART FAILURE Status: Acute (4) Hyperkalemia Code(s): E87.5 - HYPERKALEMIA Status: Acute Comment: Mainly iatrogenic due to the use of Losartan and potassium supplementation (5) Acute exacerbation of CHF (congestive heart failure) Code(s): I50.9 - HEART FAILURE, UNSPECIFIED Status: Acute Qualifiers: Congestive heart failure type: systolic Qualified Code(s): I50.23 - Acute on chronic systolic (congestive) heart failure Comment: ef 10-15% (6) Pleural effusion Code(s): J90 - PLEURAL EFFUSION, NOT ELSEWHERE CLASSIFIED Status: Acute (7) Achalasia Code(s): K22.0 - ACHALASIA OF CARDIA Status: Chronic - Plan plan discussed w/ family, PT/OT, manager social responsibility, respiratory therapy, DVT proph w/SCDs D/c all potassium meds and losartan -: D/c heparin and use SCD for DVT prophylaxis -: Low potassium diet -: Daily chemistry eval * .
[2017-04-18] MEDS ORDERED: Midazolam HCl 2 mg/2 ml Vial ONE (08:47)
[2017-04-18] MEDS ORDERED: Bupivacaine PF 0.5% 30 ML VIAL ONE (08:49)
[2017-04-18] MEDS ORDERED: Lidocaine 2% w/Epinephrine 1:200K 20 ML VIAL ONE (08:49)
[2017-04-18] MEDS ORDERED: Heparin 10,000 UNITS/1 ML VIAL ONE (08:49)
[2017-04-18] MEDS ORDERED: Sodium Chloride 0.9% 10 ML ONE (08:49)
[2017-04-18] MEDS ORDERED: Fentanyl 100 MCG/2 ML VIAL ONE (09:07)
[2017-04-18] MEDS ORDERED: traMADol HCl 50 MG TAB PO PRN (09:08)
[2017-04-18] MEDS ORDERED: Acetaminophen 500 MG TAB PO PRN (09:08)
--- NOTE | 2017-04-18 10:05 | OP ---
DATE OF PROCEDURE: 04/18/2017 PREOPERATIVE DIAGNOSES: Chronic kidney disease, hyperkalemia, renal failure. POSTOPERATIVE DIAGNOSES: Chronic kidney disease, hyperkalemia, renal failure with occluded left inte rnal jugular vein and defibrillator present, left subclavian vein. PROCEDURES PERFORMED: Right IJ cuffed tunnel hemodialysis catheter, angiodynamics precurved. Ultras ound and fluoroscopy used. Left groin triple lumen catheter. SURGEON: Dr. Jaron Caraballo. ANESTHESIA: Intravenous sedation and local 0.25% Marcaine, 30 mL, mixed with 1% Xylocaine with epine phrine, 30 mL. DESCRIPTION OF PROCEDURE: Patient was taken to the operating room where under intravenous sedation, her neck and chest were prepared with ChloraPrep, draped in routine fashion. She has a left subclavi an vein defibrillator. Ultrasound of the left internal jugular vein revealed that was occluded. Rig ht internal jugular vein and ultrasound guidance was cannulated with trocar catheter. J-wire threade d. Trocar catheter removed. Skin incised and enlarged sharply. Stab incision made over the right c hest and using the tunneling device, the precurved angiodynamics cuffed tunnel hemodialysis catheter tunneled between the two incisions, placing the fabric cuff beneath the skin and catheter secured wit h 2 interrupted sutures of 3-0 nylon. Smaller and medium sized dilators placed over the J-wire into the internal jugular vein and removed. Dilator and pull-away sheath placed over the J-wire into the superior vena cava and dilator and J-wire removed. Catheter placed with pull-away sheath; pull-away sheath removed. Catheter fluoroscopically noted to be in good position as the platysma approximated with 4-0 Monocryl, skin with subdermal 4-0 Monocryl and DermaGlue applied. Each port aspirated blood and flushed with heparinized saline solution 1000 units heparin per mL indicated volume of the port. Left femoral vein triple lumen catheter was placed and secured with 3-0 nylon and J wire removed, bow el passed, sterile dressing applied. Each port aspirated blood and flushed with saline solution. Leo amol tolerated the procedure well.
--- NOTE | 2017-04-18 10:26 | PRG ---
DATE OF SERVICE: 04/18/2017 Amina Amaro has tolerated her diet. She has some nausea which is associated with her uremia, acu te kidney injury that hopefully will resolve with dialysis. She does not have any epigastric or righ t upper quadrant pain. HIDA scan was ordered this morning by the medical service and I canceled that . There is no indication for a cholecystectomy. The patient's liver function test elevation and per icholecystic fluid is consistent with her congestive heart failure with cardiomyopathy of 10-15%, her generalized anasarca. She does have peritoneal fluid elsewhere and pleural effusions. At this time , there is no indication for cholecystectomy, and no evidence for cholecystitis and the HIDA scan was canceled. A cuffed tunnel dialysis catheter was placed, a temporary left femoral vein central line was placed for IV access this hospitalization, that can be removed prior to discharge. Her right fem oral vein Trialysis catheter can be removed today.
--- NOTE | 2017-04-18 11:19 | PDOC.EVN ---
Event Note - Event Note Event Note: Came back from the OR hypotensive but mentating ok Normal saline bolus x1 and re-evaluate hemodynamics--if no significant hemodynamic improvement will suspend dialysis
--- NOTE | 2017-04-18 11:26 | PRG ---
DATE OF SERVICE: 04/18/2017 SUBJECTIVE: This is an 87-year-old female being seen for acute kidney injury. The patient denies an y nausea, vomiting, or chest pain. PHYSICAL EXAMINATION: GENERAL: Patient is awake, alert. VITAL SIGNS: Afebrile, pulse 65, breathing at 16, blood pressure 91/52. GENERAL APPEARANCE AND MENTAL STATUS: Fair. HEAD/NECK: Normocephalic. Atraumatic. EYES: EOMI. No deformity. EARS: Clear. No ulcers. NOSE: Intact. No lesions. MOUTH: Clear. No discharge. THROAT: Clear. No exudate. LUNGS: Clear. No crackles. CARDIAC: S1, S2. No rub. ABDOMEN: Benign. BS+. GENITALIA/RECTUM: Negron absent. BACK/EXTREMITIES: Edema 0+ Ulcer-. NEUROLOGICAL: Alert and motor intact. SKIN: Rash- Bruise- LYMPHATICS: Edema- Ulcer-. LABORATORY DATA: Show hemoglobin is 15.4, potassium is 5.7. ASSESSMENT AND RECOMMENDATIONS: 1. Acute kidney injury with chronic kidney disease stage 4. We will plan dialysis. 2. Liver failure. 3. Chronic kidney disease. 4. Congestive heart failure. Overall, prognosis is extremely poor.
[2017-04-18] MEDS ORDERED: Sodium Chloride 0.9% 250 ML IVPB SCH (11:30)
--- NOTE | 2017-04-18 11:42 | RAD ---
PORTABLE AP CHEST X-RAY: 04/18/2017 HISTORY: Hemodialysis catheter placement. End-stage renal disease. COMPARISON: 04/16/2017 FINDINGS: There has been interval placement of a tunneled right internal jugular vein hemodialysis catheter wit h the tip overlying the SVC. A multilead left subclavian AICD device remains in place. The cardiac silhouette is enlarged. The pulmonary vasculature is within normal limits. No pneumothorax is prese nt. There is mild atelectasis at the right lung base. There is also slight blunting of the right la teral costophrenic angle, which may represent a tiny right pleural effusion. The cardiac silhouette is enlarged and obscures the left lung base; however, this is unchanged from the study on 04/16/2017. A large calcified granuloma is seen at the left lung base. The pulmonary vasculature is within norm al limits. Degenerative changes are seen of the spine. No other interval change. IMPRESSION: 1. Interval placement of a tunneled right internal jugular vein hemodialysis catheter. There is no pneumothorax seen. 2. Tiny right pleural effusion. 3. Cardiomegaly. 4. Suboptimal evaluation of the left lung base, likely related to enlarged cardiac silhouette. POS: [facility]
[2017-04-18 11:46] LABS: Anion Gap 17 mmol/L (10-20); BUN (Urea Nitrogen) 56 mg/dL (9.8-20.1); Calc. Creatinine Clearance 16 mL/min (70-130); Calcium 9.7 mg/dL (7.8-10.44); Carbon Dioxide 22 mmol/L (23-31); Chloride 103 mmol/L (98-107); Estimated GFR-MDRD 19; Potassium 5.8 mmol/L (3.5-5.1); Sodium 136 mmol/L (136-145)
[2017-04-18 11:49] LABS: Glucose 59 mg/dL (83-110)
[2017-04-18] MEDS ORDERED: Heparin 10,000 UNITS/ 10 ML VIAL ONE (14:05)
--- NOTE | 2017-04-18 15:30 | ULT ---
BILATERAL LOWER EXTREMITY VENOUS DUPLEX SONOGRAM: History Bilateral leg pain and edema. FINDINGS: Each common femoral vein and greater saphenous junction were evaluated along with each femoral, deep femoral, popliteal, and posterior tibial vein. There is good color and spectral Doppler flow, compre ssion, and augmentation. IMPRESSION: No sonographic evidence of deep vein thrombosis within either lower extremity. POS: [facility]
[2017-04-18] MEDS ORDERED: Insulin Regular 300 UNITS/3 ML VIAL SC PRN ×2 (15:44→15:45)
[2017-04-18] MEDS ORDERED: Dextrose 5% in Water 1,000 ML IV PRN (15:44)
[2017-04-18] MEDS ORDERED: Dextrose 50% Abboject 50 ML SYRINGE IVP PRN (15:44)
[2017-04-18] MEDS ORDERED: HumaLOG 300 UNITS/3 ML VIAL SC PRN ×2 (15:44→15:45)
[2017-04-18] MEDS ORDERED: Sodium Chloride 0.9% 500 ML IVPB SCH (15:45)
--- NOTE | 2017-04-18 15:49 | ULT ---
BILATREAL UPPER EXTREMITY VEIN MAPPING FOR DIALYSIS ACCESS: HISTORY: Renal failure. Need for dialysis access. FINDINGS: RIGHT CEPHALIC: Shoulder 0.6 mm Upper arm 1.0 mm Mid upper arm 0.8 mm Just proximal to elbow 0.9 mm Just distal to elbow clotted Mid forearm 1.6 mm Wrist 2.8 mm RIGHT BASILIC: Shoulder 3.8 mm Upper arm 3.7 mm Mid upper arm 4.8 mm Just proximal to elbow 4.2 mm Just distal to elbow 1.3 mm Mid forearm 1.2 mm Wrist 0.8 mm LEFT CEPHALIC: Shoulder 1.8 mm Upper arm 2.0 mm Mid upper arm 1.8 mm Just proximal to elbow 3.0 mm Just distal to elbow 1.8 mm Mid forearm 1.9 mm Wrist 1.4 mm LEFT BASILIC: Shoulder 3.3 mm Upper arm 2.0 mm Mid upper arm 3.6 mm Just proximal to elbow clotted Just distal to elbow 1.7 mm Mid forearm 1.7 mm Wrist 2.0 mm The right brachial, radial, and ulnar arteries measure 3.9, 1.5, and 2.3 mm in size, respectively. The left brachial, radial, and ulnar arteries measure 3.2, 1.3, and 1.5 mm in size, respectively. There is no evidence of thrombus within the subclavian veins bilaterally. IMPRESSION: Vein mapping for dialysis access as above. POS: [facility]
[2017-04-18] MEDS: Ubidecarenone 50 MG CAP PO SCH (22:09)
[2017-04-18] MEDS: Famotidine 20 MG TAB PO SCH (22:12)
[2017-04-18] MEDS: Fenofibrate 48 MG TAB PO SCH (22:12)
[2017-04-18] MEDS: Pravastatin Sodium 20 MG TAB PO SCH (22:12)
[2017-04-18] MEDS: Fish Oil 1,000 MG CAP PO SCH ×2 (22:12→22:29)
[2017-04-18] MEDS: traMADol HCl 50 MG TAB PO PRN (22:21)
[2017-04-18] MEDS: Stress 600 With Zinc 1 TAB PO SCH (22:29)
[2017-04-19] MEDS: cefTRIAXone\\ROCEPHIN 1 GM, Syringe 0.4 ML in Sterile Water 9.6 ML SLOW IVP SCH (05:06)
[2017-04-19] MEDS: Levothyroxine Sodium 75 MCG TAB PO SCH ×2 (05:06→05:11)
[2017-04-19 06:16] LABS: Anion Gap 15 mmol/L (10-20); BUN (Urea Nitrogen) 44 mg/dL (9.8-20.1); Calc. Creatinine Clearance 16 mL/min (70-130); Carbon Dioxide 25 mmol/L (23-31); Chloride 98 mmol/L (98-107); Estimated GFR-MDRD 19; Glucose 69 mg/dL (83-110); Potassium 4.7 mmol/L (3.5-5.1); Sodium 133 mmol/L (136-145)
--- NOTE | 2017-04-19 07:57 | PDOC.PN ---
- Subjective Encounter Start Date: 04/19/17 Encounter Start Time: 07:55 Subjective: Seen and examined -still dealing with labile hemodynamics and hypoglycemia -: Dont see this patient as a great candidiate for Hemodialysis - Objective Vital Signs & Weight: Vital Signs (12 hours) Temp Pulse Resp BP BP BP Pulse Ox 04/19/17 04:30 102/53 L 04/19/17 04:00 97.5 F L 63 18 99/50 L 04/19/17 00:00 97.6 F 61 18 104/55 L 94 L 04/18/17 20:00 97.8 F 63 18 92/55 L 95 Weight Admit Weight 134 lb 1.6 oz Weight 141 lb 1.533 oz I&O: 04/18/17 04/19/17 04/20/17 06:59 06:59 06:59 Intake Total 400 1469 Balance 400 1469 Result Diagrams: 04/17/17 04:12 04/19/17 04:55 Additional Labs: Accuchecks 04/19/17 04/19/17 04/18/17 06:54 06:15 14:35 POC Glucose 86 65 L 88 04/18/17 12:25 POC Glucose 60 L Phys Exam - Physical Examination Constitutional: NAD HEENT: PERRLA, moist MMs, sclera anicteric, TM's clear Neck: no nodes, no JVD, supple, full ROM Respiratory: no wheezing, clear to auscultation bilateral Cardiovascular: RRR, no significant murmur, no rub Gastrointestinal: soft, non-tender, no distention, positive bowel sounds Musculoskeletal: no edema, pulses present Dx/Plan (1) Fall Code(s): W19.XXXA - UNSPECIFIED FALL, INITIAL ENCOUNTER Status: Acute (2) Acute renal failure Status: Acute (3) Chronic systolic heart failure Code(s): I50.22 - CHRONIC SYSTOLIC (CONGESTIVE) HEART FAILURE Status: Acute (4) Hyperkalemia Code(s): E87.5 - HYPERKALEMIA Status: Acute Comment: Mainly iatrogenic due to the use of Losartan and potassium supplementation (5) Acute exacerbation of CHF (congestive heart failure) Code(s): I50.9 - HEART FAILURE, UNSPECIFIED Status: Acute Qualifiers: Congestive heart failure type: systolic Qualified Code(s): I50.23 - Acute on chronic systolic (congestive) heart failure Comment: ef 10-15% (6) Pleural effusion Code(s): J90 - PLEURAL EFFUSION, NOT ELSEWHERE CLASSIFIED Status: Acute (7) Achalasia Code(s): K22.0 - ACHALASIA OF CARDIA Status: Chronic (8) Hypoglycemia Code(s): E16.2 - HYPOGLYCEMIA, UNSPECIFIED Status: Acute (9) Hypotension Status: Acute - Plan plan discussed w/ family, PT/OT, nursing home social worker, respiratory therapy As documented above patient seems 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
[2017-04-19] MEDS ORDERED: Dextrose 5 % And 0.9 % NaCl 1,000 ML IV SCH (08:30)
[2017-04-19] MEDS ORDERED: Sodium Chloride 0.9% 10 ML ONE (09:08)
[2017-04-19] MEDS: Carvedilol 3.125 MG TAB PO SCH ×2 (09:18→17:29)
--- NOTE | 2017-04-19 10:49 | PRG ---
DATE OF SERVICE: 04/19/2017 SUBJECTIVE: An 87-year-old female being seen for acute kidney injury. The patient denies any nausea , vomiting or chest pain. PHYSICAL EXAMINATION: GENERAL: Patient is resting. VITAL SIGNS: Afebrile, pulse 61, breathing at 16, blood pressure 120/56. HEAD/NECK: Normocephalic. Atraumatic. EYES: EOMI. No deformity. EARS: Clear. No ulcers. NOSE: Intact. No lesions. MOUTH: Clear. No discharge. THROAT: Clear. No exudate. LUNGS: Clear. No crackles. CARDIAC: S1, S2. No rub. ABDOMEN: Benign. BS+. GENITALIA/RECTUM: Negron absent. BACK/EXTREMITIES: Edema 0+ Ulcer- NEUROLOGICAL: Alert and motor intact. SKIN: Rash- Bruise- LYMPHATICS: Edema- Ulcer- LABORATORY DATA: Show creatinine is 2.4. ASSESSMENT AND RECOMMENDATIONS: 1. Chronic kidney disease stage 4 with acute kidney injury, status post hemodialysis, stable. 2. Hyperkalemia, improved. 3. Hyponatremia, stable. 4. Medications based on glomerular filtration rate are appropriate. No indication for dialysis at t his time.
[2017-04-19] MEDS: Dextrose 5 %-0.45 % NaCl 1,000 ML IV SCH (11:45)
[2017-04-19] MEDS ORDERED: Sodium Chloride 0.9% 500 ML IV SCH (21:15)
[2017-04-19] MEDS: Famotidine 20 MG TAB PO SCH (22:59)
[2017-04-19] MEDS: Fenofibrate 48 MG TAB PO SCH (22:59)
[2017-04-19] MEDS: Fish Oil 1,000 MG CAP PO SCH (22:59)
[2017-04-19] MEDS: Stress 600 With Zinc 1 TAB PO SCH (23:00)
[2017-04-19] MEDS: Pravastatin Sodium 20 MG TAB PO SCH (23:00)
[2017-04-19] MEDS: Ubidecarenone 50 MG CAP PO SCH (23:00)
[2017-04-20] MEDS: Dextrose 5 %-0.45 % NaCl 1,000 ML IV SCH (00:09)
[2017-04-20] MEDS: cefTRIAXone\\ROCEPHIN 1 GM, Syringe 0.4 ML in Sterile Water 9.6 ML SLOW IVP SCH (05:42)
[2017-04-20] MEDS: Levothyroxine Sodium 75 MCG TAB PO SCH (05:42)
[2017-04-20 06:25] LABS: Anion Gap 19 mmol/L (10-20); BUN (Urea Nitrogen) 49 mg/dL (9.8-20.1); Calc. Creatinine Clearance 14 mL/min (70-130); Calcium 8.7 mg/dL (7.8-10.44); Carbon Dioxide 20 mmol/L (23-31); Chloride 99 mmol/L (98-107); Estimated GFR-MDRD 14; Glucose 137 mg/dL (83-110); Potassium 4.9 mmol/L (3.5-5.1); Sodium 133 mmol/L (136-145)
--- NOTE | 2017-04-20 07:33 | PDOC.PN ---
- Subjective Encounter Start Date: 04/20/17 Encounter Start Time: 07:32 Subjective: Seen and examined -had a long discussion with family yesterday regarding -: code status-pt remains full code - Objective Vital Signs & Weight: Vital Signs (12 hours) Temp Pulse Resp BP Pulse Ox 04/20/17 04:00 97.5 F L 64 18 93/54 L 100 04/20/17 00:00 64 18 85/52 L 97 04/19/17 20:00 96.8 F L 63 18 87/53 L 98 Weight Admit Weight 134 lb 1.6 oz Weight 152 lb I&O: 04/19/17 04/20/17 04/21/17 06:59 06:59 06:59 Intake Total 1469 1777 Output Total 60 Balance 1469 1717 Result Diagrams: 04/17/17 04:12 04/20/17 05:23 Additional Labs: Accuchecks 04/20/17 04/19/17 04/19/17 06:03 20:01 16:55 POC Glucose 132 H 111 H 103 04/19/17 11:40 POC Glucose 110 Phys Exam - Physical Examination Constitutional: NAD HEENT: PERRLA, moist MMs, sclera anicteric, TM's clear Neck: no nodes, no JVD, supple, full ROM Respiratory: no wheezing, no rales, no rhonchi Cardiovascular: RRR, no significant murmur, no rub Gastrointestinal: soft, non-tender, no distention, positive bowel sounds Musculoskeletal: pulses present, edema present Dx/Plan (1) Fall Code(s): W19.XXXA - UNSPECIFIED FALL, INITIAL ENCOUNTER Status: Acute (2) Acute renal failure Status: Acute (3) Chronic systolic heart failure Code(s): I50.22 - CHRONIC SYSTOLIC (CONGESTIVE) HEART FAILURE Status: Acute (4) Hyperkalemia Code(s): E87.5 - HYPERKALEMIA Status: Acute Comment: Mainly iatrogenic due to the use of Losartan and potassium supplementation (5) Acute exacerbation of CHF (congestive heart failure) Code(s): I50.9 - HEART FAILURE, UNSPECIFIED Status: Acute Qualifiers: Congestive heart failure type: systolic Qualified Code(s): I50.23 - Acute on chronic systolic (congestive) heart failure Comment: ef 10-15% (6) Pleural effusion Code(s): J90 - PLEURAL EFFUSION, NOT ELSEWHERE CLASSIFIED Status: Acute (7) Achalasia Code(s): K22.0 - ACHALASIA OF CARDIA Status: Chronic (8) Hypoglycemia Code(s): E16.2 - HYPOGLYCEMIA, UNSPECIFIED Status: Acute (9) Hypotension Status: Acute - Plan plan discussed w/ family, PT/OT, social work specialist, respiratory therapy Prognosis --poor--D/c IVF -: Labile hemodynamics-- -: The family seems not very enthusiastic about hemodialysis-will defer to the -: Renal service for final decision on this matter--if no further dialysis -: will suggest dialysis catheter to be taken out * .
[2017-04-20] MEDS ORDERED: Sodium Chloride 0.9% 10 ML ONE (08:30)
[2017-04-20] MEDS: Carvedilol 3.125 MG TAB PO SCH ×2 (09:23→18:31)
--- NOTE | 2017-04-20 11:34 | PRG ---
DATE OF SERVICE: 04/20/2017 SUBJECTIVE: An 87-year-old female being seen for acute kidney injury and hyperkalemia. Patient is r esting, no problems reported. PHYSICAL EXAMINATION: GENERAL: Patient is resting. VITAL SIGNS: Afebrile, pulse 63, breathing at 16, blood pressure 110/60. HEAD/NECK: Normocephalic. Atraumatic. EYES: EOMI. No deformity. EARS: Clear. No ulcers. NOSE: Intact. No lesions. MOUTH: Clear. No discharge. THROAT: Clear. No exudate. LUNGS: Clear. No crackles. CARDIAC: S1, S2. No rub. ABDOMEN: Benign. BS+. GENITALIA/RECTUM: Negron absent. BACK/EXTREMITIES: Edema 0+ Ulcer- NEUROLOGICAL: Alert and motor intact. SKIN: Rash- Bruise- LYMPHATICS: Edema- Ulcer- LABORATORY DATA: Show hemoglobin 15.4, creatinine is 3.11. ASSESSMENT AND PLAN: 1. Acute kidney injury with chronic kidney disease due to cardiorenal syndrome. 2. Hyperkalemia, stable. Risks versus benefits of dialysis were discussed with family. Family has refused dialysis. Overall, prognosis is extremely poor.
[2017-04-20] MEDS ORDERED: Digoxin 0.125 MG TAB PO SCH (18:30)
[2017-04-20] MEDS: Fenofibrate 48 MG TAB PO SCH (20:02)
[2017-04-20] MEDS: Famotidine 20 MG TAB PO SCH (20:02)
[2017-04-20] MEDS: Fish Oil 1,000 MG CAP PO SCH (20:03)
[2017-04-20] MEDS: Ubidecarenone 50 MG CAP PO SCH (20:03)
[2017-04-20] MEDS: Pravastatin Sodium 20 MG TAB PO SCH (20:03)
[2017-04-20] MEDS: Stress 600 With Zinc 1 TAB PO SCH (20:03)
[2017-04-21] MEDS: cefTRIAXone\\ROCEPHIN 1 GM, Syringe 0.4 ML in Sterile Water 9.6 ML SLOW IVP SCH (05:10)
[2017-04-21] MEDS: Levothyroxine Sodium 75 MCG TAB PO SCH (05:38)
[2017-04-21 05:51] LABS: Anion Gap 18 mmol/L (10-20); BUN (Urea Nitrogen) 55 mg/dL (9.8-20.1); Calc. Creatinine Clearance 12 mL/min (70-130); Calcium 9.1 mg/dL (7.8-10.44); Carbon Dioxide 24 mmol/L (23-31); Chloride 95 mmol/L (98-107); Estimated GFR-MDRD 13; Glucose 97 mg/dL (83-110); Potassium 4.7 mmol/L (3.5-5.1); Sodium 132 mmol/L (136-145)
--- NOTE | 2017-04-21 08:28 | PDOC.PN ---
- Subjective Encounter Start Date: 04/21/17 Encounter Start Time: 09:30 Subjective: Patient with SOB this AM. None previously. No other complaint. Some -: UOP yesterday, not much today. Not on any Lasix. - Objective MAR Reviewed: Yes Vital Signs & Weight: Vital Signs (12 hours) Temp Pulse Resp BP Pulse Ox 04/21/17 04:27 97.6 F 66 18 116/60 96 04/21/17 00:00 98.9 F 68 16 105/57 L 95 Weight Admit Weight 134 lb 1.6 oz Weight 151 lb 3.2 oz I&O: 04/20/17 04/21/17 04/22/17 06:59 06:59 06:59 Intake Total 1777 720 Output Total 60 100 Balance 1717 620 Result Diagrams: 04/17/17 04:12 04/21/17 05:13 Additional Labs: Accuchecks 04/21/17 04/20/17 04/20/17 05:35 20:37 16:53 POC Glucose 87 128 H 95 04/20/17 11:16 POC Glucose 121 H Phys Exam - Physical Examination Constitutional: NAD HEENT: moist MMs bibasilar rales, mild increased WOB on O2 Cardiovascular: RRR Gastrointestinal: soft, positive bowel sounds Neurological: non-focal Psychiatric: normal affect, A&O x 3 Dx/Plan (1) Acute renal failure Status: Acute Comment: Creatinine worsening off dialysis, family to discuss hospice, no dialysis planned at d/c (2) Hyperkalemia Code(s): E87.5 - HYPERKALEMIA Status: Resolved Comment: Mainly iatrogenic due to the use of Losartan and potassium supplementation (3) Acute exacerbation of CHF (congestive heart failure) Code(s): I50.9 - HEART FAILURE, UNSPECIFIED Status: Acute Qualifiers: Congestive heart failure type: systolic Qualified Code(s): I50.23 - Acute on chronic systolic (congestive) heart failure Comment: ef 10-15% (4) Pleural effusion Code(s): J90 - PLEURAL EFFUSION, NOT ELSEWHERE CLASSIFIED Status: Chronic Comment: mild bilateral due to CHF (5) Achalasia Code(s): K22.0 - ACHALASIA OF CARDIA Status: Chronic - Plan cont current plan of care Will restart Lasix IV. Watch creatinine closely. Fluid and salt restriction -: Family to discuss prognosis about kidneys with Dr. Gutierres. * . - Discharge Day Encounter end time: 10:00
[2017-04-21] MEDS: Ondansetron ODT 4 MG TAB PO PRN (10:34)
[2017-04-21] MEDS ORDERED: Furosemide 40 MG/4 ML VIAL SLOW IVP SCH ×2 (11:15→14:00)
[2017-04-21] MEDS: Carvedilol 3.125 MG TAB PO SCH ×2 (11:37→17:31)
[2017-04-21 12:33] VITALS: BMI 24.4
[2017-04-21] MEDS: Furosemide 100 MG/10 ML VIAL SLOW IVP SCH (17:19)
--- NOTE | 2017-04-21 18:38 | PRG ---
DATE OF SERVICE: 04/21/2017 SUBJECTIVE: This is an elderly female, very lethargic. Family at bedside. OBJECTIVE: GENERAL: This is an elderly female, very lethargic. VITAL SIGNS: Temperature 98.0, pulse 64, respiratory rate 18, blood pressure 134/64. HEENT: Atraumatic, normocephalic. Oral mucosa is moist NECK: Supple. CARDIOVASCULAR: S1 and S2 heard. Rate and rhythm regular. RESPIRATORY: Clear to auscultation. GASTROINTESTINAL: Abdomen is soft. MUSCULOSKELETAL: No tenderness. No edema. DERMATOLOGIC: No skin rash. NEUROLOGIC: Alert and awake and oriented X3, No focal neurologic deficits. Moving all the extremities. PSYCHIATRIC: Mood and affect normal. LABORATORY DATA: Potassium is 4.7, BUN 55, creatinine is 3.4. ASSESSMENT AND PLAN: 1. Acute kidney injury on chronic kidney disease stage 4. Renal function continues to get worse due to cardiorenal syndrome. 2. Hyperkalemia. 3. Hypertension 4. Edema 5. Cardiorenal syndrome. I had lengthy discussion with the family and family understands the high risks for dialysis with her and refuses to have any more dialysis. I advised to hospice care and palliative care, and I will sign off and we discussed with the primary care team and also with the charge nurse in tele and advised to have hospice and comfort measures. We will sign off. Please call back if any questions. [facility]
[2017-04-21] MEDS: Fish Oil 1,000 MG CAP PO SCH (23:03)
[2017-04-21] MEDS: Famotidine 20 MG TAB PO SCH (23:03)
[2017-04-21] MEDS: Pravastatin Sodium 20 MG TAB PO SCH (23:03)
[2017-04-21] MEDS: Fenofibrate 48 MG TAB PO SCH (23:04)
[2017-04-21] MEDS: Stress 600 With Zinc 1 TAB PO SCH (23:04)
[2017-04-21] MEDS: Ubidecarenone 50 MG CAP PO SCH (23:04)
[2017-04-22] MEDS: Furosemide 100 MG/10 ML VIAL SLOW IVP SCH (06:17)
[2017-04-22] MEDS: Levothyroxine Sodium 75 MCG TAB PO SCH (06:17)
[2017-04-22] MEDS: cefTRIAXone\\ROCEPHIN 1 GM, Syringe 0.4 ML in Sterile Water 9.6 ML SLOW IVP SCH (06:18)
[2017-04-22] MEDS ORDERED: Sterile Water 10 ML ONE (06:32)
[2017-04-22] MEDS: Carvedilol 3.125 MG TAB PO SCH (08:04)
[2017-04-22] MEDS ORDERED: Furosemide 40 MG/4 ML VIAL SLOW IVP SCH (09:00)
--- NOTE | 2017-04-22 09:28 | PDOC.PN ---
- Subjective Encounter Start Date: 04/22/17 Encounter Start Time: 10:00 Subjective: Patient with improved SOB today. No other changes. - Objective MAR Reviewed: Yes Vital Signs & Weight: Vital Signs (12 hours) Temp Pulse Resp BP Pulse Ox 04/22/17 08:06 96.1 F L 63 14 110/55 L 94 L 04/22/17 08:00 96.1 F L 63 14 94 L 04/22/17 04:00 99.5 F 62 18 105/58 L 93 L 04/21/17 22:50 97.6 F 65 18 107/55 L 95 Weight Admit Weight 134 lb 1.6 oz Weight 152 lb 4.8 oz I&O: 04/21/17 04/22/17 04/23/17 06:59 06:59 06:59 Intake Total 720 360 Output Total 100 1000 Balance 620 -640 Result Diagrams: 04/17/17 04:12 04/21/17 05:13 Additional Labs: Accuchecks 04/22/17 04/21/17 04/21/17 06:28 20:28 17:05 POC Glucose 67 L 82 82 04/21/17 11:33 POC Glucose 97 Phys Exam - Physical Examination Constitutional: NAD HEENT: moist MMs Respiratory: no rales bibasilar rales, decent air movement Cardiovascular: RRR Gastrointestinal: soft, positive bowel sounds Neurological: non-focal Psychiatric: normal affect, A&O x 3 Dx/Plan (1) Acute renal failure Status: Acute Comment: Creatinine worsening off dialysis, family arranging inpatient hospice, no dialysis planned at d/c (2) Hyperkalemia Code(s): E87.5 - HYPERKALEMIA Status: Resolved Comment: Mainly iatrogenic due to the use of Losartan and potassium supplementation (3) Acute exacerbation of CHF (congestive heart failure) Code(s): I50.9 - HEART FAILURE, UNSPECIFIED Status: Acute Qualifiers: Congestive heart failure type: systolic Qualified Code(s): I50.23 - Acute on chronic systolic (congestive) heart failure Comment: ef 10-15% (4) Pleural effusion Code(s): J90 - PLEURAL EFFUSION, NOT ELSEWHERE CLASSIFIED Status: Chronic Comment: mild bilateral due to CHF (5) Achalasia Code(s): K22.0 - ACHALASIA OF CARDIA Status: Chronic - Plan Patient with severe CHF with cardiorenal syndrome, didn't tolerate dialysis -: now family moving toward inpatient hospice, transfer once arranged -: DNR * . - Discharge Day Encounter end time: 10:30
[2017-04-22] MEDS ORDERED: Bisacodyl 5 MG TAB PO PRN (11:00)
[2017-04-22 11:08] VITALS: BP 105/52; TEMP 97.4
--- NOTE | 2017-04-22 15:49 | DIS ---
PRIMARY CARE PHYSICIAN: Hua Villarreal M.D. DIAGNOSES ON ADMISSION: 1. Follow with chest contusion. 2. Abdominal pain with nausea likely chronic achalasia. 3. Acute on chronic kidney injury with hyperkalemia. 4. Chronic systolic congestive heart failure. DISCHARGE DIAGNOSES: 1. Acute renal failure secondary to cardiorenal syndrome. 2. Hyperkalemia, resolved. 3. Acute exacerbation of chronic systolic congestive heart failure with ejection fraction of 10% -15 %. 4. Pleural effusion. 5. Achalasia. PROCEDURES: 1. Right femoral vein hemodialysis catheter placement, later removed. 2. CT of the abdomen and pelvis without contrast showing no acute evidence for intra-abdominal or pe lvic abnormality with some cholelithiasis with possible stranding surrounding the gallbladder and div erticulosis. 3. Ultrasound right upper quadrant showing gallbladder with thickened wall and pericholecystic fluid . 4. Right internal jugular cuffed hemodialysis catheter placement in the left groin triple lumen cath eter. 5. Bilateral lower extremity ultrasound showing no evidence for deep vein thrombosis. 6. Bilateral upper extremity vein mapping for dialysis was done. PERTINENT LABORATORY DATA: Creatinine initially 2.1 on admission, came up to 3.43 once dialysis was stopped. Potassium peaked up 6.5 down to 4.7 the day before discharge. 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 She presented after a fall in the bathroom with hitting the side of her chest with soreness of her chest and some abdominal pain, also with chr onic nausea from achalasia. She had CT as above and ultrasound, which had a question of cholecystiti s. She was evaluated by Surgery, Dr. Gao, who determined that this was not cholecystitis. The pat ient did have hyperkalemia on admission and this continued to rise. She had to have emergency dialys is with removal of extra potassium. The patient tolerated dialysis very poorly, had altered mental s tatus both times it was done. She and the family refused further dialysis. Her creatinine started t o increase after that. She also had some fluid retention in her lungs with crackles on exam and shor tness of breath. She had 80 mg of Lasix given IV twice a day with some urine output and a little bit of improvement in her symptoms. However, creatinine continued to rise. Dr. Gutierres did have a discuss ion with the patient about the severity of her congestive heart failure and resulting renal failure. Family determined that they did not want any dialysis and would prefer to move toward hospice care. The patient was eventually cleared for inpatient hospice care with [facility]. She was d ischarged to their inpatient facility. DISCHARGE MANAGMENT: Discharged to inpatient [facility]. ACTIVITIES: As tolerated. DIET: Fluid restricted, healthy heart, low sodium diet. MEDICATIONS: As per hospice, would recommend continuing attempts at diuresis with Lasix 80 mg daily.
[2017-04-22] MEDS ORDERED: Docusate 100 MG CAP PO SCH (21:00)
== END 2017-04-22 13:41 | disposition hospice, inpatient (51) | DRG 673 ==
LOC: ERS 10:58 → 2SW 16:25 → OBSVTOIN 04-17 14:26 → 2NO 04-17 19:34
PROVIDERS: ADMIT Internal Medicine; ATTEND Internal Medicine
PROC: 5A1D70Z Performance of Urinary Filtration, Intermittent, Less than 6 Hours Per Day (ICD-10-PCS; 2017-04-17)
PROC: 06HY33Z Insertion of Infusion Device into Lower Vein, Percutaneous Approach (ICD-10-PCS; 2017-04-17)
PROC: 02HV33Z Insertion of Infusion Device into Superior Vena Cava, Percutaneous Approach (ICD-10-PCS; principal; 2017-04-18)
PROC: 5A1D70Z Performance of Urinary Filtration, Intermittent, Less than 6 Hours Per Day (ICD-10-PCS; 2017-04-18)
PROC: 02HV33Z Insertion of Infusion Device into Superior Vena Cava, Percutaneous Approach (ICD-10-PCS; 2017-04-18)
PROC: 0JH63XZ Insertion of Tunneled Vascular Access Device into Chest Subcutaneous Tissue and Fascia, Percutaneous Approach (ICD-10-PCS; 2017-04-18)
DX: N17.9 Acute kidney failure, unspecified (principal); I50.23 Acute on chronic systolic (congestive) heart failure; E87.2 Acidosis; I95.9 Hypotension, unspecified; E87.5 Hyperkalemia; E87.1 Hypo-osmolality and hyponatremia; I42.9 Cardiomyopathy, unspecified; I13.0 Hypertensive heart and chronic kidney disease with heart failure and stage 1 through stage 4 chronic kidney disease, or unspecified chronic kidney disease; K22.0 Achalasia of cardia; Z51.5 Encounter for palliative care; J44.9 Chronic obstructive pulmonary disease, unspecified; Z66 Do not resuscitate; Z95.810 Presence of automatic (implantable) cardiac defibrillator; E03.9 Hypothyroidism, unspecified; Z85.6 Personal history of leukemia; S20.219A Contusion of unspecified front wall of thorax, initial encounter; W19.XXXA Unspecified fall, initial encounter; Y92.002 Bathroom of unspecified non-institutional (private) residence as the place of occurrence of the external cause; E78.5 Hyperlipidemia, unspecified; N18.4 Chronic kidney disease, stage 4 (severe); T46.5X5A Adverse effect of other antihypertensive drugs, initial encounter; E16.2 Hypoglycemia, unspecified
CPT/HCPCS: 36415; 36416; 71045; 71046; 74176; 76705; 80048; 80053; 80076; 80162; 80306; 81001; 82533; 82553; 83690; 84484; 85025; 86704; 86706; 86803; 87086; 87340; 90935; 93005; 93798; 93970; 96361; 96365; 96375; A4216; C1752; C1769; G0257; G0365; G8978-GP-CL; G8979-GP-CI; G8996-GN-CK; G8997-GN-CK; J0131; J0696; J1610; J1642; J1644; J1940; J2250; J2405; J2543; J3010; J7050; Q0162; S0020